=== PATIENT | male | born 1990 | race Caucasian/White ===

== ENCOUNTER 2020-12-19 10:11 | Emergency (ER) | payer OTHER ==
[~2020-12-19] VITALS: Ht 170.2 cm; Wt 63.6 kg
[2020-12-19] MEDS ORDERED: IBUPROFEN 800 MG TABLET PO ONE (11:45)
[2020-12-19 12:06] VITALS: BP 118/65
== END 2020-12-19 12:12 | disposition home or self-care (01) ==
LOC: EMS 10:17
DX: S20.211A Contusion of right front wall of thorax, initial encounter (principal); V09.9XXA Pedestrian injured in unspecified transport accident, initial encounter; Y93.55 Activity, bike riding; Y92.488 Other paved roadways as the place of occurrence of the external cause; Y99.8 Other external cause status
CPT/HCPCS: 71101; 99283

== ENCOUNTER 2021-09-17 17:47 | Emergency (ER) | payer OTHER | END 2021-09-17 18:30 | disposition left against medical advice (07) | LOC: EMS 17:47 | DX: R69 Illness, unspecified (principal); Z53.21 Procedure and treatment not carried out due to patient leaving prior to being seen by health care provider ==